=== PATIENT | male | born 1965 | race African-American/Black ===

== ENCOUNTER 2021-04-11 21:32 | Emergency (ER) | payer SELFPAY ==
[~2021-04-11] VITALS: Ht 165.1 cm; Wt 64.0 kg
[2021-04-11 21:35] VITALS: BP 154/90
== END 2021-04-11 22:15 | disposition left against medical advice (07) ==
LOC: ER 21:32
DX: Z53.21 Procedure and treatment not carried out due to patient leaving prior to being seen by health care provider (principal)
CPT/HCPCS: 93005